=== PATIENT | female | born 1955 | race African-American/Black ===

== ENCOUNTER 2020-03-05 17:23 | Inpatient (IN) | payer MEDICARE ==
[2020-03-05] MEDS ORDERED: diphenhydrAMINE 25 MG CAP PO PRN (19:49)
[2020-03-05] MEDS ORDERED: Mag-Al 1200 mg/1200 mg/30 ML UDCUP PO PRN (19:49)
[2020-03-05] MEDS ORDERED: clonazePAM 1 MG TAB PO PRN (19:49)
[2020-03-05] MEDS ORDERED: Promethazine 25 MG TAB PO PRN (19:49)
[2020-03-05] MEDS ORDERED: Prochlorperazine 10 MG/2 ML VIAL IM PRN (19:49)
[2020-03-05] MEDS ORDERED: Cyclobenzaprine 10 MG TAB PO PRN (19:59)
[2020-03-05] MEDS: Gabapentin 300 MG CAP PO SCH (20:36)
[2020-03-05] MEDS: Propranolol HCl 20 MG TAB PO SCH (20:37)
[2020-03-05] MEDS: traMADol HCl 50 MG TAB PO SCH (20:39)
[2020-03-05] MEDS: Acetaminophen 325 MG TAB PO PRN (20:58)
[2020-03-05] MEDS ORDERED: Scopolamine 1.5 mg/72 hour Patch TD SCH (21:00)
[2020-03-06] MEDS: Acetaminophen 325 MG TAB PO PRN ×4 (04:35→18:36)
[2020-03-06] MEDS: Potassium Chloride 10 MEQ TAB PO SCH ×2 (08:05→17:50)
[2020-03-06] MEDS: Furosemide 40 MG TAB PO SCH ×2 (08:05→14:16)
[2020-03-06] MEDS: Stress 600 With Zinc 1 TAB PO SCH (08:05)
[2020-03-06] MEDS: Aspirin Chewable 81 MG TAB PO SCH (08:06)
[2020-03-06] MEDS: Propranolol HCl 20 MG TAB PO SCH ×2 (08:06→21:25)
[2020-03-06] MEDS: Gabapentin 300 MG CAP PO SCH ×3 (08:06→21:24)
[2020-03-06] MEDS: Multivitamin W/ Minerals 1 TAB PO SCH (08:07)
[2020-03-06] MEDS: Cyanocobalamin (Vitamin B-12) 1,000 MCG TAB PO SCH (08:07)
[2020-03-06] MEDS: Fluticasone Propionate Nasal Spray 16 gm Bottle NASAL SCH (08:07)
[2020-03-06] MEDS: Metolazone 5 MG TAB PO SCH (08:07)
[2020-03-06] MEDS: traMADol HCl 50 MG TAB PO SCH ×2 (08:08→21:26)
[2020-03-06] MEDS: Sulfameth/Trimethoprim DS 800-160mg TAB PO SCH ×2 (09:11→21:24)
[2020-03-06] MEDS: clonazePAM 0.5 MG TAB PO PRN ×2 (10:13→22:10)
[2020-03-06] MEDS: Cyclobenzaprine 10 MG TAB PO PRN (19:43)
[2020-03-06] MEDS: Scopolamine 1.5 mg/72 hour Patch TD SCH (19:47)
[2020-03-07] MEDS: Acetaminophen 325 MG TAB PO PRN ×3 (02:09→17:29)
[2020-03-07] MEDS: traMADol HCl 50 MG TAB PO SCH ×2 (08:05→20:46)
[2020-03-07] MEDS: Multivitamin W/ Minerals 1 TAB PO SCH (09:08)
[2020-03-07] MEDS: Cyanocobalamin (Vitamin B-12) 1,000 MCG TAB PO SCH (09:09)
[2020-03-07] MEDS: Furosemide 40 MG TAB PO SCH ×2 (09:09→14:27)
[2020-03-07] MEDS: Gabapentin 300 MG CAP PO SCH ×3 (09:09→20:47)
[2020-03-07] MEDS: Sulfameth/Trimethoprim DS 800-160mg TAB PO SCH ×2 (09:09→20:48)
[2020-03-07] MEDS: Potassium Chloride 10 MEQ TAB PO SCH ×2 (09:09→17:35)
[2020-03-07] MEDS: Fluticasone Propionate Nasal Spray 16 gm Bottle NASAL SCH (09:12)
[2020-03-07] MEDS: Stress 600 With Zinc 1 TAB PO SCH (09:19)
[2020-03-07] MEDS: Aspirin Chewable 81 MG TAB PO SCH (09:19)
[2020-03-07] MEDS: Propranolol HCl 20 MG TAB PO SCH ×2 (09:23→20:48)
[2020-03-07] MEDS: Milk Of Magnesia 30 ML UDCUP PO PRN (14:29)
[2020-03-07] MEDS: clonazePAM 0.5 MG TAB PO PRN (20:51)
[2020-03-08] MEDS: Cyclobenzaprine 10 MG TAB PO PRN ×3 (01:34→19:19)
[2020-03-08] MEDS: traMADol HCl 50 MG TAB PO SCH ×2 (07:41→21:12)
[2020-03-08] MEDS: Acetaminophen 325 MG TAB PO PRN (07:41)
[2020-03-08] MEDS: Stress 600 With Zinc 1 TAB PO SCH (08:36)
[2020-03-08] MEDS: Milk Of Magnesia 30 ML UDCUP PO PRN (08:36)
[2020-03-08] MEDS: Aspirin Chewable 81 MG TAB PO SCH (08:40)
[2020-03-08] MEDS: Cyanocobalamin (Vitamin B-12) 1,000 MCG TAB PO SCH (08:40)
[2020-03-08] MEDS: Sulfameth/Trimethoprim DS 800-160mg TAB PO SCH ×2 (08:40→21:13)
[2020-03-08] MEDS: Potassium Chloride 10 MEQ TAB PO SCH ×2 (08:40→17:20)
[2020-03-08] MEDS: Multivitamin W/ Minerals 1 TAB PO SCH (08:40)
[2020-03-08] MEDS: Gabapentin 300 MG CAP PO SCH ×3 (08:40→21:11)
[2020-03-08] MEDS: Furosemide 40 MG TAB PO SCH ×2 (08:41→14:53)
[2020-03-08] MEDS: Propranolol HCl 20 MG TAB PO SCH ×2 (08:49→21:14)
[2020-03-08] MEDS: Fluticasone Propionate Nasal Spray 16 gm Bottle NASAL SCH (09:10)
[2020-03-08] MEDS: clonazePAM 0.5 MG TAB PO PRN (19:20)
[2020-03-08] MEDS ORDERED: Simethicone Chewable 80 MG TAB PO PRN (20:56)
[2020-03-08] MEDS ORDERED: Simethicone Chewable 80 MG TAB PO SCH (21:00)
[2020-03-09 05:35] LABS: Anion Gap 16 mmol/L (10-20); BUN (Urea Nitrogen) 11 mg/dL (9.8-20.1); Calc. Creatinine Clearance 105 mL/min (70-130); Calcium 8.6 mg/dL (7.8-10.44); Carbon Dioxide 32 mmol/L (23-31); Chloride 91 mmol/L (98-107); Estimated GFR-MDRD 85; Glucose 112 mg/dL (80-115); Sodium 136 mmol/L (136-145)
[2020-03-09 05:39] LABS: Potassium 2.7 mmol/L (3.5-5.1)
[2020-03-09] MEDS: Acetaminophen 325 MG TAB PO PRN ×3 (05:43→18:35)
[2020-03-09] MEDS ORDERED: Potassium Chloride 20 MEQ TAB PO SCH (06:00)
[2020-03-09] MEDS: Sulfameth/Trimethoprim DS 800-160mg TAB PO SCH ×2 (08:18→20:57)
[2020-03-09] MEDS: Fluticasone Propionate Nasal Spray 16 gm Bottle NASAL SCH (08:18)
[2020-03-09] MEDS: traMADol HCl 50 MG TAB PO SCH ×2 (08:19→20:57)
[2020-03-09] MEDS: Cyanocobalamin (Vitamin B-12) 1,000 MCG TAB PO SCH (08:19)
[2020-03-09] MEDS: Potassium Chloride 10 MEQ TAB PO SCH ×2 (08:20→17:51)
[2020-03-09] MEDS: Stress 600 With Zinc 1 TAB PO SCH (08:21)
[2020-03-09] MEDS: Gabapentin 300 MG CAP PO SCH ×3 (08:21→20:56)
[2020-03-09] MEDS: Furosemide 40 MG TAB PO SCH ×2 (08:21→14:29)
[2020-03-09] MEDS: Aspirin Chewable 81 MG TAB PO SCH (08:21)
[2020-03-09] MEDS: Multivitamin W/ Minerals 1 TAB PO SCH (08:21)
[2020-03-09] MEDS: Metolazone 5 MG TAB PO SCH (08:21)
[2020-03-09] MEDS: Propranolol HCl 20 MG TAB PO SCH ×2 (08:22→20:58)
[2020-03-09] MEDS: Milk Of Magnesia 30 ML UDCUP PO PRN (13:13)
[2020-03-09] MEDS: clonazePAM 0.5 MG TAB PO PRN (20:55)
[2020-03-09] MEDS: Scopolamine 1.5 mg/72 hour Patch TD SCH (20:55)
[2020-03-09] MEDS: Cyclobenzaprine 10 MG TAB PO PRN (21:57)
[2020-03-10] MEDS: Acetaminophen 325 MG TAB PO PRN ×3 (05:44→21:57)
[2020-03-10] MEDS: traMADol HCl 50 MG TAB PO SCH ×2 (08:33→21:04)
[2020-03-10] MEDS: Stress 600 With Zinc 1 TAB PO SCH (08:33)
[2020-03-10] MEDS: Multivitamin W/ Minerals 1 TAB PO SCH (08:34)
[2020-03-10] MEDS: Cyanocobalamin (Vitamin B-12) 1,000 MCG TAB PO SCH (08:35)
[2020-03-10] MEDS: Sulfameth/Trimethoprim DS 800-160mg TAB PO SCH ×2 (08:35→21:04)
[2020-03-10] MEDS: Gabapentin 300 MG CAP PO SCH ×3 (08:35→21:04)
[2020-03-10] MEDS: Potassium Chloride 10 MEQ TAB PO SCH ×2 (08:35→17:23)
[2020-03-10] MEDS: Aspirin Chewable 81 MG TAB PO SCH (08:36)
[2020-03-10] MEDS: Fluticasone Propionate Nasal Spray 16 gm Bottle NASAL SCH (08:36)
[2020-03-10] MEDS: Furosemide 40 MG TAB PO SCH ×2 (08:36→14:18)
[2020-03-10] MEDS: Propranolol HCl 20 MG TAB PO SCH ×2 (08:41→21:09)
[2020-03-10] MEDS: clonazePAM 0.5 MG TAB PO PRN (21:05)
[2020-03-10] MEDS: Cyclobenzaprine 10 MG TAB PO PRN (21:59)
[2020-03-11] MEDS: Acetaminophen 325 MG TAB PO PRN ×2 (05:53→20:22)
[2020-03-11 06:06] LABS: Anion Gap 17 mmol/L (10-20); BUN (Urea Nitrogen) 15 mg/dL (9.8-20.1); Calc. Creatinine Clearance 89 mL/min (70-130); Calcium 8.8 mg/dL (7.8-10.44); Carbon Dioxide 32 mmol/L (23-31); Chloride 93 mmol/L (98-107); Estimated GFR-MDRD 70; Glucose 81 mg/dL (80-115); Potassium 3.1 mmol/L (3.5-5.1); Sodium 139 mmol/L (136-145)
[2020-03-11] MEDS: Furosemide 40 MG TAB PO SCH ×2 (08:42→14:27)
[2020-03-11] MEDS: Potassium Chloride 10 MEQ TAB PO SCH ×2 (08:42→17:06)
[2020-03-11] MEDS: Sulfameth/Trimethoprim DS 800-160mg TAB PO SCH ×2 (08:42→20:23)
[2020-03-11] MEDS: traMADol HCl 50 MG TAB PO SCH ×2 (08:42→20:24)
[2020-03-11] MEDS: Cyanocobalamin (Vitamin B-12) 1,000 MCG TAB PO SCH (08:44)
[2020-03-11] MEDS: Gabapentin 300 MG CAP PO SCH ×3 (08:44→20:23)
[2020-03-11] MEDS: Stress 600 With Zinc 1 TAB PO SCH (08:44)
[2020-03-11] MEDS: Aspirin Chewable 81 MG TAB PO SCH (08:44)
[2020-03-11] MEDS: Multivitamin W/ Minerals 1 TAB PO SCH (08:44)
[2020-03-11] MEDS: Fluticasone Propionate Nasal Spray 16 gm Bottle NASAL SCH (08:45)
[2020-03-11] MEDS: Propranolol HCl 20 MG TAB PO SCH ×2 (08:55→20:28)
[2020-03-11] MEDS: Milk Of Magnesia 30 ML UDCUP PO PRN (09:05)
[2020-03-11] MEDS: clonazePAM 0.5 MG TAB PO PRN (20:22)
[2020-03-12] MEDS: Cyclobenzaprine 10 MG TAB PO PRN (05:05)
[2020-03-12 05:19] VITALS: BMI 37.9
[2020-03-12] MEDS: Stress 600 With Zinc 1 TAB PO SCH (08:35)
[2020-03-12] MEDS: Sulfameth/Trimethoprim DS 800-160mg TAB PO SCH ×2 (08:36→20:08)
[2020-03-12] MEDS: Cyanocobalamin (Vitamin B-12) 1,000 MCG TAB PO SCH (08:36)
[2020-03-12] MEDS: Multivitamin W/ Minerals 1 TAB PO SCH (08:36)
[2020-03-12] MEDS: Potassium Chloride 20 MEQ TAB PO SCH (08:36)
[2020-03-12] MEDS: Furosemide 40 MG TAB PO SCH ×2 (08:36→13:30)
[2020-03-12] MEDS: Aspirin Chewable 81 MG TAB PO SCH (08:36)
[2020-03-12] MEDS: Gabapentin 300 MG CAP PO SCH ×3 (08:36→20:09)
[2020-03-12] MEDS: Metolazone 5 MG TAB PO SCH (08:36)
[2020-03-12] MEDS: Fluticasone Propionate Nasal Spray 16 gm Bottle NASAL SCH (08:37)
[2020-03-12] MEDS: traMADol HCl 50 MG TAB PO SCH ×2 (08:37→21:04)
[2020-03-12] MEDS: clonazePAM 0.5 MG TAB PO PRN ×2 (08:39→20:11)
[2020-03-12] MEDS: Acetaminophen 325 MG TAB PO PRN (08:39)
[2020-03-12] MEDS: Propranolol HCl 20 MG TAB PO SCH ×2 (08:39→20:09)
[2020-03-12] MEDS: Scopolamine 1.5 mg/72 hour Patch TD SCH (20:10)
[2020-03-13] MEDS: Acetaminophen 325 MG TAB PO PRN (05:31)
[2020-03-13 06:00] LABS: Base Excess-Venous 6.8 mmol/L (-2.0 to 3.0); Bicarbonate (HCO3v) 31.5 mmol/L (22.0-28.0); CO2 Tension (PvCO2) 44.7 mmHg (40.0-50.0); Calcium, Ionized 1.07 mmol/L (See Comments:); Chloride 95 mmol/L (98-107); Hemoglobin - Calc 11.1 g/dL (12.0-16.0); Sodium 138 mmol/L (138-145); T. Carbon Dioxide 32.9 mmol/L (22.0-28.0); vO2 Saturation-calc 98.4 % (60.0-85.0)
[2020-03-13] MEDS: Cyanocobalamin (Vitamin B-12) 1,000 MCG TAB PO SCH (08:37)
[2020-03-13] MEDS: Fluticasone Propionate Nasal Spray 16 gm Bottle NASAL SCH (08:37)
[2020-03-13] MEDS: Stress 600 With Zinc 1 TAB PO SCH (08:38)
[2020-03-13] MEDS: Potassium Chloride 20 MEQ TAB PO SCH (08:38)
[2020-03-13] MEDS: Aspirin Chewable 81 MG TAB PO SCH (08:38)
[2020-03-13] MEDS: Furosemide 40 MG TAB PO SCH ×2 (08:38→13:34)
[2020-03-13] MEDS: Multivitamin W/ Minerals 1 TAB PO SCH (08:38)
[2020-03-13] MEDS: Gabapentin 300 MG CAP PO SCH ×3 (08:38→20:32)
[2020-03-13] MEDS: Sulfameth/Trimethoprim DS 800-160mg TAB PO SCH ×2 (08:38→20:32)
[2020-03-13] MEDS: clonazePAM 0.5 MG TAB PO PRN ×2 (08:39→20:32)
[2020-03-13] MEDS: traMADol HCl 50 MG TAB PO SCH ×2 (08:39→20:32)
[2020-03-13] MEDS: Propranolol HCl 20 MG TAB PO SCH ×2 (08:40→20:40)
[2020-03-13] MEDS: Milk Of Magnesia 30 ML UDCUP PO PRN (08:40)
[2020-03-14] MEDS: Fluticasone Propionate Nasal Spray 16 gm Bottle NASAL SCH (08:03)
[2020-03-14] MEDS: Propranolol HCl 20 MG TAB PO SCH (08:04)
[2020-03-14] MEDS: Stress 600 With Zinc 1 TAB PO SCH (08:04)
[2020-03-14] MEDS: Gabapentin 300 MG CAP PO SCH ×2 (08:04→13:22)
[2020-03-14] MEDS: Cyanocobalamin (Vitamin B-12) 1,000 MCG TAB PO SCH (08:05)
[2020-03-14] MEDS: Furosemide 40 MG TAB PO SCH ×2 (08:05→13:22)
[2020-03-14] MEDS: Sulfameth/Trimethoprim DS 800-160mg TAB PO SCH (08:05)
[2020-03-14] MEDS: traMADol HCl 50 MG TAB PO SCH (08:06)
[2020-03-14] MEDS: Aspirin Chewable 81 MG TAB PO SCH (08:06)
[2020-03-14] MEDS: Potassium Chloride 20 MEQ TAB PO SCH (08:06)
[2020-03-14] MEDS: Multivitamin W/ Minerals 1 TAB PO SCH (08:06)
[2020-03-14 08:52] VITALS: BP 97/53; TEMP 98.2
== END 2020-03-14 13:30 | disposition home or self-care (01) | DRG 560 ==
LOC: BURMED 18:10
PROVIDERS: ADMIT Family Medicine; ATTEND Family Medicine
DX: Z47.89 Encounter for other orthopedic aftercare (principal); N39.0 Urinary tract infection, site not specified; I10 Essential (primary) hypertension; I89.0 Lymphedema, not elsewhere classified; M19.90 Unspecified osteoarthritis, unspecified site; G89.4 Chronic pain syndrome; M81.0 Age-related osteoporosis without current pathological fracture; G47.00 Insomnia, unspecified; E87.6 Hypokalemia; Z98.84 Bariatric surgery status; Z98.1 Arthrodesis status; Z68.37 Body mass index [BMI] 37.0-37.9, adult; Z99.3 Dependence on wheelchair; Z90.49 Acquired absence of other specified parts of digestive tract; Z90.710 Acquired absence of both cervix and uterus
CPT/HCPCS: 36415; 80048; 82330; 82803; 85014; Q0169